=== PATIENT | female | born 1970 | race African-American/Black ===

== ENCOUNTER 2018-06-25 14:52 | Emergency (ER) | payer SELFPAY ==
[~2018-06-25] VITALS: Ht 182.9 cm; Wt 84.0 kg
[2018-06-25] MEDS ORDERED: IBUPROFEN 600MG TABLET PO STA (20:43)
[2018-06-25 20:49] VITALS: BP 132/85
== END 2018-06-25 22:53 | disposition home or self-care (01) ==
LOC: ER 14:52
DX: R05 Cough (principal); R07.89 Other chest pain; R10.84 Generalized abdominal pain; F17.200 Nicotine dependence, unspecified, uncomplicated
CPT/HCPCS: 71045; 93005; 99283